=== PATIENT | male | born 1985 | race Two or more races ===

== ENCOUNTER → 2016-12-13 | Emergency (ER) | payer SELFPAY ==
[~2016-12-13] VITALS: Ht 172.7 cm; Wt 81.6 kg
[~2016-12-13] MED LIST: Thiamine 100mg tab ORAL ONE
[2016-12-13 16:14] VITALS: BP 128/77
--- NOTE | 2016-12-13 16:15 | Emergency Room Report ---
History of Present Illness General Chief Complaint: Alcohol Intoxication Source: Patient, EMS Present Illness HPI Patient 31-year-old male who presented after increased altered mental status. Patient was brought in by EMS. Patient noted be the recently drinking heavy amounts of alcohol. Patient prior history of alcohol abuse. He reports having increased pain to his left foot. Patient denies any other complaints. Patient chronic wound to his left leg. Allergies: Coded Allergies: No Known Allergies (Unverified , 12/13/16) Patient History Reviewed Nursing Documentation: PMH: Agreed, PSxH: Agreed Nursing Documentation-PMH Past Medical History: No Stated History Review of Systems All Other Systems: negative except mentioned in HPI Physical Exam Vital Signs Date Time Temp Pulse Resp B/P Pulse Ox O2 Delivery O2 Flow Rate FiO2 12/13/16 16:01 97.3 107 20 128/77 98 Room Air General Appearance: well appearing, no apparent distress, alert, GCS 15 Head: normocephalic, atraumatic ENT: hearing grossly normal, normal voice Neck: full range of motion, supple Respiratory: no respiratory distress, speaking full sentences Cardiovascular #1: normal inspection Gastrointestinal: normal inspection, normal bowel sounds, non tender, soft, no mass Musculoskeletal: no calf tenderness Neurologic: normal gait Psychiatric: mood/affect normal Skin: no rash Medical Decision Making Diagnostic Impression: Primary Impression: Acute alcoholic intoxication ER Course Patient presented for altered mental status. Differential diagnosis included but was not limited to alcohol intoxication, ischemic stroke, subarachnoid hemorrhage, hypoglycemia, spinal cord injury, neurodegenerative disorder, urinary tract infection, hypoxemia.Because of complexity of patient's case laboratory testing and imaging studies were ordered. This was noted to have evidence of acute alcohol intoxication. He does not appear to require laboratory testing at this time.At the time of discharge patient was a ambulatory without assistance. The patient is advised followup with his primary care physician. He is advised that drinking excessive alcohol. Last Vital Signs Date Time Temp Pulse Resp B/P Pulse Ox O2 Delivery O2 Flow Rate FiO2 12/13/16 16:01 97.3 107 20 128/77 98 Room Air Status: improved Disposition: HOME, SELF-CARE Condition: Stable Carlos Painter Dec 13, 2016 16:15
[2016-12-13 19:30] VITALS: BP 127/62
== END | disposition home or self-care (01) ==
LOC: EDBD 16:10 → EMR 16:40
DX: F10.129 Alcohol abuse with intoxication, unspecified (principal); M25.572 Pain in left ankle and joints of left foot
CPT/HCPCS: 99284